=== PATIENT | male | born 1990 | race Caucasian/White ===

== ENCOUNTER 2019-11-12 12:44 | Inpatient (IN) | payer MEDICAID, OTHER ==
--- NOTE | 2019-11-12 12:57 | ED ---
Influenza-Like Illness - HPI Summary HPI Summary: 29 year old M presenting to [facility] via EMS with a chief complaint of shortness of breath and chest pain since earlier today. Patient reports a fever, headache , diffuse body aches, loss of taste, loss of smell, and diarrhea for the last 3 days, worse today. He has been taking Acetaminophen 3-4 times per day and Nyquil for his symptoms. He was tested for COVID-19 yesterday and the results are still pending. He has been isolated at home and has only been out 3 times in the community to go to the supermarket which is where he thinks he may have contracted COVID-19. Medication list reviewed. Allergy list reviewed. - History of Current Complaint Chief Complaint: EDFluSymptoms Hx Obtained From: Patient Onset/Duration: Lasting Days, Still Present - Allergy/Home Medications Allergies/Adverse Reactions: Allergies Allergy/AdvReac Type Severity Reaction Status Date / Time No Known Allergies Allergy Verified 11/12/19 13:13 Home Medications: Home Medications NK [No Home Medications Reported] 11/12/19 [History Confirmed 11/12/19] PMH/Surg Hx/FS Hx/Imm Hx Endocrine/Hematology History: Denies: Hx Diabetes Cardiovascular History: Denies: Hx Hypertension - Surgical History Surgical History: None Infectious Disease History: No Infectious Disease History: Denies: Traveled Outside the [place] in Last 30 Days - Social History Alcohol Use: Occasionally Hx Substance Use: No Substance Use Type: Reports: None Hx Tobacco Use: No Smoking Status (MU): Never Smoked Tobacco Review of Systems Constitutional: Other - Loss of taste, loss of smell Positive: Fever Positive: Chest Pain Positive: Shortness Of Breath Positive: Diarrhea Positive: Myalgia Positive: Headache All Other Systems Reviewed And Are Negative: Yes Physical Exam - Summary Physical Exam Summary: VITAL SIGNS: Reviewed. GENERAL: Patient is a well-developed and nourished male who is lying comfortable in the stretcher. Patient is clammy and diaphoretic. HEAD AND FACE: No signs of trauma. No ecchymosis, hematomas or skull depressions. No sinus tenderness. Oral mucosa dry. EYES: PERRL, EOMI x 2, No injected conjunctiva, no nystagmus. EARS: Hearing grossly intact. Ear canals and tympanic membranes are within normal limits. MOUTH: Oropharynx within normal limits. NECK: Supple, trachea is midline, no adenopathy, no JVD, no carotid bruit, no c- spine tenderness, neck with full ROM. CHEST: Symmetric, no tenderness at palpation. LUNGS: Coarse breath sounds bilaterally. CVS: Slightly tachycardic, S1 and S2 present, no murmurs or gallops appreciated. ABDOMEN: Soft, non-tender. No signs of distention. No rebound, no guarding, and no masses palpated. Bowel sounds are normal. EXTREMITIES: FROM in all major joints, no edema, no cyanosis or clubbing. NEURO: Alert and oriented x 3. No acute neurological deficits. Speech is normal and follows commands. SKIN: Warm. Triage Information Reviewed: Yes Vital Signs On Initial Exam: Initial Vitals Temp Pulse Resp BP Pulse Ox 98.3 F 101 19 155/99 94 11/12/19 12:50 11/12/19 12:50 11/12/19 12:50 11/12/19 12:50 11/12/19 12:50 Vital Signs Reviewed: Yes Procedures - Sedation Patient Received Moderate/Deep Sedation with Procedure: No Diagnostics - Vital Signs Vital Signs Temp Pulse Resp BP Pulse Ox 11/12/19 12:50 98.3 F 101 19 155/99 94 - Laboratory Result Diagrams: 11/12/19 13:06 11/12/19 13:06 Lab Statement: Any lab studies that have been ordered have been reviewed, and results considered in the medical decision making process. - Radiology Chest x-ray Radiology Interpretation Completed By: Radiologist Summary of Radiographic Findings: PATCHY BIBASILAR AIRSPACE DISEASE. ED physician has reviewed this report. - EKG 13:10 Cardiac Rate: NL - 98 BPM EKG Rhythm: Sinus Rhythm Summary of EKG Findings: No STEMI, normal axis. ED physician has reviewed and interpreted this EKG. Flu Symptom Course/Dx - Course Assessment/Plan: 29 year old M presenting to [facility] via EMS with a chief complaint of shortness of breath and chest pain since earlier today. Patient reports a fever, headache, diffuse body aches, loss of taste, loss of smell, and diarrhea for the last 3 days, worse today. He has been taking Acetaminophen 3-4 times per day and Nyquil for his symptoms. He was tested for COVID-19 yesterday and the results are still pending. Medication list reviewed. Allergy list reviewed. In the ED course the patient was placed on a [employer], IV access was obtained, IV fluids started and will be given only 250 cc of IVF since there is a suspicion for COVID-19. He was given Zofran 4 mg IV for nausea and vomiting. HR 101, he is afebrile and BP 155/99. Past medical records reviewed. Blood test w/o a significant abnormality except for wbcs of 20.3, absolute neutrophils of 18.8, absolute lymphocytes of 0.9, INR is 1.42, fibrinogen is 874.7, d-dimer is present 200. Sodium 133, chloride 96, anion gap is 13, glucose 101, total bilirubin is 1.3, CRP is 246, and globulins 4.3. CXR IMPRESSION: PATCHY BIBASILAR AIRSPACE DISEASE. We are still awaiting for the COVID-19 tests results. Patient was given azithromycin and Rocephin for his pneumonia. I also added hydrochloroquine for suspicion of COVID-19. I discussed my physical exam and test results with Dr. Andrew from the hospitalist services and she agrees to admit the patient to her services. The patient is hemodynamically stable alert and oriented x 3. - Diagnoses Provider Diagnoses: Pneumonia - Physician Notifications Discussed Care Of Patient With: Vicki Andrew Time Discussed With Above Provider: 14:27 Instructed by Provider To: Other - Discussed with Dr. Andrew. Critical Care Statement: Critical care time is provided exclusive of any time spent performing procedures. Discharge ED - Sign-Out/Discharge Documenting (check all that apply): Patient Departure - Discharge Plan Condition: Stable Disposition: ADMITTED TO [facility] - Billing Disposition and Condition Condition: STABLE Disposition: Admitted to [facility] - Attestation Statements Document Initiated by Scribe: Yes Documenting Scribe: Lissy Hartmann Provider For Whom Phyllis is Documenting (Include Credential): Efraín Ingram MD Scribe Attestation: I, chantel Stubbsed for Efraín Ingram MD on 11/12/19 at 205. Scribe Documentation Reviewed: Yes Provider Attestation: The documentation as recorded by the Lissy monique accurately reflects the service I personally performed and the decisions made by me, Efraín Ingram MD Status of Scribe Document: Viewed
[2019-11-12] MEDS ORDERED: NS 0.9% 250 ML* 250 ML IV ONE (13:07)
[2019-11-12] MEDS ORDERED: Ondansetron INJ* 2 MG/ML VIAL IV ONE (13:08)
[2019-11-12] MEDS ORDERED: NS 0.9% 1000 ML** 1,000 ML IV.FLUID IV ONE (13:17)
[2019-11-12 13:55] LABS: Albumin 4.1 g/dL (3.2-5.2); BUN/Creatinine Ratio 9.8 (8-20); C Reactive Protein 246.32 mg/L (<8.01); Calcium 9.8 mg/dL (8.6-10.3); EGFR African American 105.2 (>60); Globulin 4.3 g/dL (2-4); Potassium 3.5 mmol/L (3.5-5.0); Total Bilirubin 1.3 mg/dL (0.2-1.0); Total Protein 8.4 g/dL (6.4-8.9)
[2019-11-12 14:07] LABS: ABS Lymphocytes 0.9 10^3/ul (1.0-4.8); ABS Monocytes 0.6 10^3/ul (0-0.8); ABS Neutrophils 18.8 10^3/ul (1.5-7.7); Hematocrit 44 % (42-52); Lymphocyte % 4.2 %; Mean Corpuscular HGB Conc 36 g/dL (31-36); Mean Corpuscular Hemoglobin 31 pg (27-31); Mean Corpuscular Volume 86 fL (80-94); Mean Platelet Volume 7.3 fL (7.4-10.4); Platelet Count 312 10^3/uL (150-450); Red Blood Count 5.14 10^6 /uL (4.18-5.48); Red Cell Distribution Width 12 % (10-15); White Blood Count 20.3 10^3/uL (3.5-10.8)
[2019-11-12 14:11] LABS: Activated Partial Thrombo Time 36.3 seconds (26.0-38.0); Fibrinogen 874.7 mg/dL (110.8-404.3); INR 1.42 (0.82-1.09)
[2019-11-12] MEDS ORDERED: Azithromycin 500 mg/250 ml NS 500 MG/250 ML BAG IVPB ONE (14:20)
[2019-11-12] MEDS ORDERED: cefTRIAXone(*) 1 GM in NS 0.9% 50 ML* 50 ML IVPB ONE (14:22)
[2019-11-12] MEDS ORDERED: Hydrochlorothiazide TAB* 50 MG PO ONE (14:31)
[2019-11-12] MEDS ORDERED: CHLOROQUINE PO ONE (14:51)
[2019-11-12] MEDS ORDERED: Hydroxychloroquine TAB* 200 MG PO ONE (15:00)
[2019-11-12] MEDS ORDERED: Benzonatate CAP* 100 MG PO PRN (15:17)
[2019-11-12] MEDS: Acetaminophen TAB* 325 MG PO PRN (16:28)
--- NOTE | 2019-11-12 17:01 | HP ---
CC: Dr. Teresita English: Dr. Vicki Andrew* ADMISSION HISTORY AND PHYSICAL: DATE OF ADMISSION: 11/12/19 PRIMARY CARE PHYSICIAN: Dr. Teresita English. MY ATTENDING WHILE IN THE HOSPITAL: Dr. Vicki Andrew* (dictated by AGUSTIN Cisneros). CHIEF COMPLAINT: Shortness of breath, muscle aches, subjective fevers x3 days. HISTORY OF PRESENT ILLNESS: Mr. Pate is a 29-year-old male with no significant past medical history who has been feeling his normal state of health, staying generally under social distancing precautions except for 3 trips to the grocery store, who on Sunday night began to feel feverish; short of breath with muscle aches; lack of appetite; subjective fevers, the highest documented fever he has had was up to 101.3; nausea; vomiting; diarrhea of nonbloody stool and vomiting of nonbloody vomit. The patient has not been around anyone who has been sick that he knows of. The patient does live in the same house with his parents, but does not have any direct contact with them. His mother, however, is a primary care provider in the area and has sick contacts frequently. The patient has not had anything to eat or drink in 3 days, but does not feel dizzy on standing. The patient has been urinating normally. The patient has no other pain, no other complaints. In the emergency department, the patient was found to have an elevated white blood cell count and a chest x-ray showing bilateral opacification consistent with COVID-19. He was found to be tachycardic and have oxygen saturations ranging from 91% to 94%. Due to concern for COVID-19 with relative hypoxia for a 29-year-old, we were asked to evaluate the patient for admission to the hospital. PAST MEDICAL HISTORY: None. PAST SURGICAL HISTORY: None. MEDICATIONS: 1. Tylenol as needed. 2. DayQuil as needed. ALLERGIES: No known drug allergies. FAMILY HISTORY: The patient's father has possible high blood pressure. The patient's mother is alive and well with no medical history. The patient has no siblings. SOCIAL HISTORY: The patient has never smoked. The patient drinks alcohol occasionally. Denies illicit drug use. 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 The patient is not and has no children. His surrogate decision maker will be his mother, Wilma Pate. REVIEW OF SYSTEMS: A 10-point review of systems was reviewed and negative except as above in HPI. PHYSICAL EXAMINATION GENERAL: The patient is a 29-year-old male, who appears his stated age and sitting in the bed with mildly increased work of breathing. VITAL SIGNS: Temperature 99.3, pulse rate 101, respiratory rate 19, oxygen saturation 94% on room air, blood pressure 155/99. HEENT: Head is normocephalic, atraumatic. Sclerae anicteric. No conjunctival injection. Nasal mucosa moist. Oral mucosa moist. No pharyngeal erythema, discharge, or exudate. NECK: Supple, nontender. No lymphadenopathy. No carotid bruits auscultated. No JVD. RESPIRATORY: Clear to auscultation bilaterally. No wheezes, rales, or rhonchi. Good air exchange bilaterally. CARDIAC: Tachycardic. No clicks, murmurs, gallops, or rubs. Pulses 2+ in bilateral dorsalis pedis, posterior tibialis, and radial areas. ABDOMEN: Soft, nontender, and nondistended. Bowel sounds present, normoactive in all 4 quadrants. No hepatosplenomegaly. No abdominal bruits auscultated. No hepatojugular reflux. GENITOURINARY: No suprapubic or CVA tenderness. SKIN: Clean, dry, and intact. No rash. NEUROLOGIC: Cranial nerves II through XII intact. No focal deficits. Alert and oriented x3. PSYCHIATRIC: Pleasant and cooperative. LABORATORY DATA: White blood cell count 20.3, hemoglobin 16.0, platelet count 312. INR 1.42. D-dimer less than 200. APTT 36.3. Fibrinogen 874.7. Sodium 133, potassium 3.5, chloride 96, carbon dioxide 24, anion gap 13, BUN 10, creatinine 1.02, glucose 101, lactic acid 0.9, calcium 9.8, bilirubin 1.3, AST 27, ALT 17, alkaline phosphatase 84. Troponin 0.00. CRP 246.32. Protein 8.4, albumin 4.1, globulin 4.3. STUDIES: Chest x-ray read as bilateral patchy bibasilar airspace disease. Electrocardiogram shows sinus tachycardia, no other abnormalities. QTc 415. ASSESSMENT AND PLAN: Impression: Mr. Pate is a 29-year-old male with no significant past medical history, who presents with 3 days of symptoms consistent with a viral illness. The patient tested negative for influenza and he currently has a COVID-19 test pending. The patient has a very high suspicion for COVID-19. He will be admitted to the hospital due to relative hypoxia and concern for rapid deterioration. 1. Viral infection, high concern for COVID-19. The patient has what appears to be a viral infection with fevers, body aches, abdominal pain, nausea, vomiting and shortness of breath. The patient is relatively hypoxic with his oxygen saturation dipping down to approximately 91, which is very low for his age and physical condition. The patient is not requiring oxygen at this time; however, the patient will be admitted to the hospital for observation due to his relative hypoxia. The patient given his leukocytosis as well as leukopenia will be started on azithromycin and ceftriaxone, which he has already received in the emergency department, though concern of bacterial superinfection is low. If the patient does not improve on antibiotics, these likely should be discontinued in the next couple of days. The patient will be started on hydroxychloroquine, he received 400 mg in the emergency department, he will receive 400 more tonight and then 400 daily. The patient does not have poor prognostic risk factors for COVID-19, however, he will be monitored closely. 2. DVT prophylaxis: The patient will be given Lovenox subcu due to the hypercoagulability, particularly seen in COVID-19 patients. 3. Disposition: Observation. TIME SPENT: Approximately 60 minutes was spent on admission of this patient, 30 of which is spent [id number] with the patient obtaining history and physical and discussing treatment plan. The plan was discussed with my attending, Dr. Vicki Andrew and she is in agreement. AGUSTIN CISNEROS [id number]/CPS #: [id number] MTDNishant
[2019-11-12] MEDS: Enoxaparin(*) 40 MG/0.4 ML SYR SUBCUT SCH (17:29)
[2019-11-12] MEDS ORDERED: PROCHLORPERAZINE INJ 5 MG/ML 2 ML VIAL IV PRN (17:39)
[2019-11-12 17:45] LABS: Urine Appearance Clear; Urine Bilirubin Negative (Negative); Urine Blood Negative (Negative); Urine Color Yellow; Urine Glucose Negative (Negative); Urine Ketones 1+ (Negative); Urine Nitrite Negative (Negative); Urine Protein Negative (Negative); Urine Specific Gravity 1.012 (1.010-1.030); Urine Urobilinogen Negative (Negative)
[2019-11-12] MEDS ORDERED: guaiFENesin ER TAB 600 MG PO SCH (21:00)
[2019-11-12] MEDS: Ibuprofen TAB* 600 MG PO PRN (21:07)
[2019-11-13] MEDS: Ibuprofen TAB* 600 MG PO PRN ×2 (03:45→17:28)
[2019-11-13] MEDS: [UNRECOGNIZED DRUG - REMARK] PO SCH (08:05)
[2019-11-13] MEDS: Acetaminophen TAB* 325 MG PO PRN ×2 (08:05→16:23)
[2019-11-13] MEDS: Ondansetron INJ* 2 MG/ML VIAL IV PRN ×2 (08:05→21:13)
[2019-11-13] MEDS ORDERED: Hydroxychloroquine TAB* 200 MG PO SCH (09:00)
--- NOTE | 2019-11-13 12:40 | PN ---
Subjective Date of Service: 11/13/19 Interval History: 29 year old man with diarrhea, cough, dyspnea, fever. This morning appetite improved and keeping down fluids, less dyspnea. Now has cough and vomiting, feeling more short of breath. No chest pain. Objective Active Medications: Acetaminophen (Tylenol Tab*) 650 mg PO Q6H PRN PRN Reason: MILD PAIN or TEMP > 100.4 Last Admin: 11/13/19 08:05 Dose: 650 mg Enoxaparin Sodium (Lovenox(*)) 40 mg SUBCUT Q24H [facility] Last Admin: 11/12/19 17:29 Dose: 40 mg Hydroxychloroquine Sulfate (Plaquenil 200 Mg Tab*) 200 mg PO DAILY [facility] Stop: 11/16/19 09:01 Last Admin: 11/13/19 08:05 Dose: 200 mg Azithromycin 250 mg/ Sodium (Chloride) 250 mls @ 250 mls/hr IVPB Q24H [facility] Ceftriaxone Sodium 1 gm/ (Sodium Chloride) 50 mls @ 200 mls/hr IVPB Q24H [facility] Ibuprofen (Motrin Tab*) 600 mg PO Q6H PRN PRN Reason: PAIN - MILD Last Admin: 11/13/19 03:45 Dose: 600 mg Ondansetron HCl (Zofran Inj*) 4 mg IV Q6H PRN PRN Reason: NAUSEA Last Admin: 11/13/19 08:05 Dose: 4 mg Prochlorperazine Edisylate (Compazine Inj*) 2.5 mg IV Q6H PRN PRN Reason: NAUSEA/VOMITING Last Admin: 11/12/19 18:33 Dose: 2.5 mg Vital Signs - 8 hr 11/13/19 11/13/19 11/13/19 07:15 08:00 11:35 Temperature 36.3 C 36.6 C Pulse Rate 95 105 Respiratory 26 22 Rate Blood Pressure 131/73 147/92 (mmHg) O2 Sat by Pulse 95 95 99 Oximetry Oxygen Devices in Use Now: None, Nasal Cannula Eyes: No Scleral Icterus Ears/Nose/Mouth/Throat: Clear Oropharnyx Neck: NL Appearance and Movements; NL JVP Respiratory: Symmetrical Chest Expansion and Respiratory Effort, Clear to Auscultation Cardiovascular: NL Sounds; No Murmurs; No JVD, RRR Abdominal: NL Sounds; No Tenderness; No Distention Skin: No Rash or Ulcers Neurological: Alert and Oriented x 3 Result Diagrams: 11/12/19 13:06 11/12/19 13:06 Assess/Plan/Problems-Billing Assessment: - Patient Problems (1) Pneumonia Current Visit: No Status: Acute Code(s): J18.9 - PNEUMONIA, UNSPECIFIED ORGANISM SNOMED Code(s): 953746998 Comment: COVID19 negative x1 but think still most likely. Retest, continue hydroxychloroquine. Lekocytosis, continue ceftri/azithro for possibility of bacterial CAP. (2) Diarrhea Current Visit: No Status: Acute Code(s): R19.7 - DIARRHEA, UNSPECIFIED SNOMED Code(s): 96808935 Comment: restart fluids (3) DVT prophylaxis Current Visit: Yes Status: Acute Code(s): Z29.9 - ENCOUNTER FOR PROPHYLACTIC MEASURES, UNSPECIFIED SNOMED Code(s): 346840556 (4) Full code status Current Visit: Yes Status: Acute Code(s): Z78.9 - OTHER SPECIFIED HEALTH STATUS SNOMED Code(s): 557219702
[2019-11-13] MEDS ORDERED: NS 0.9% 1000 ML** 1,000 ML IV SCH (12:45)
[2019-11-13] MEDS: Benzonatate CAP* 100 MG PO PRN (13:13)
[2019-11-13] MEDS ORDERED: NS 0.9% 1000 ML** 1,000 ML IV ONE (14:42)
[2019-11-13] MEDS ORDERED: Albuterol HFA INHALER* 8 gm MDI INH PRN (15:35)
[2019-11-13] MEDS ORDERED: Azithromycin IV(*) 250 MG in NS 0.9% 250 ML* 250 ML IVPB SCH (16:00)
[2019-11-13] MEDS ORDERED: cefTRIAXone(*) 1 GM in NS 0.9% 50 ML* 50 ML IVPB SCH (16:00)
[2019-11-13] MEDS: cefTRIAXone(*) 1 GM in NS 0.9% 50 ML* 50 ML IVPB SCH (16:29)
[2019-11-13] MEDS: LORazepam TAB(*) 0.5 MG PO PRN (17:28)
[2019-11-13] MEDS: Azithromycin IV(*) 250 MG in NS 0.9% 250 ML* 250 ML IVPB SCH (17:29)
[2019-11-13] MEDS: Enoxaparin(*) 40 MG/0.4 ML SYR SUBCUT SCH (17:29)
[2019-11-13 21:44] LABS: BUN/Creatinine Ratio 8.8 (8-20); C Reactive Protein 307.86 mg/L (<8.01); EGFR African American 105.2 (>60); Potassium 3.5 mmol/L (3.5-5.0)
--- NOTE | 2019-11-13 23:35 | PN ---
Progress Note - Progress Note Date of Service: 11/20/19 Note: Pt's D dimer and CRP is elevated. According to [facility] anticoagulation protocol for COVID + pt should be fully anticoagulated with Lovenox 1 mg/kd Q12H. will start tx tonight
[2019-11-13] MEDS ORDERED: Enoxaparin(*) 60 MG/0.6 ML SYR SUBCUT ONE (23:45)
[2019-11-14] MEDS: Ibuprofen TAB* 600 MG PO PRN ×3 (03:41→22:24)
[2019-11-14] MEDS: LORazepam TAB(*) 0.5 MG PO PRN ×3 (03:41→17:07)
[2019-11-14] MEDS ORDERED: NS 0.9% 1000 ML** 1,000 ML IV ONE (03:59)
[2019-11-14 07:20] LABS: Hematocrit 38 % (42-52); Hemoglobin 13.7 g/dL (14.0-18.0); Mean Corpuscular HGB Conc 37 g/dL (31-36); Mean Corpuscular Hemoglobin 32 pg (27-31); Mean Corpuscular Volume 86 fL (80-94); Platelet Count 303 10^3/uL (150-450); Red Blood Count 4.35 10^6 /uL (4.18-5.48); Red Cell Distribution Width 12 % (10-15); White Blood Count 10.8 10^3/uL (3.5-10.8)
[2019-11-14 07:22] LABS: Albumin 3.3 g/dL (3.2-5.2); Albumin/Globulin Ratio 0.9 (1-3); BUN/Creatinine Ratio 8.2 (8-20); Calcium 8.6 mg/dL (8.6-10.3); EGFR African American 110.2 (>60); EGFR Non-African American 91.1 (>60); Globulin 3.7 g/dL (2-4); Potassium 3.6 mmol/L (3.5-5.0); Total Bilirubin 0.7 mg/dL (0.2-1.0)
[2019-11-14] MEDS: Ondansetron INJ* 2 MG/ML VIAL IV PRN ×2 (08:39→20:32)
[2019-11-14] MEDS: [UNRECOGNIZED DRUG - REMARK] PO SCH (08:39)
[2019-11-14] MEDS: Enoxaparin(*) 100 MG/ML SYR SUBCUT SCH (11:49)
[2019-11-14] MEDS: Acetaminophen TAB* 325 MG PO PRN ×3 (11:53→21:20)
[2019-11-14] MEDS: Benzonatate CAP* 100 MG PO PRN ×2 (12:25→22:25)
[2019-11-14] MEDS: cefTRIAXone(*) 1 GM in NS 0.9% 50 ML* 50 ML IVPB SCH (15:19)
--- NOTE | 2019-11-14 15:22 | PN ---
Subjective Date of Service: 11/14/19 Interval History: 29 year old man with fever, diarrhea, cough and dyspnea. Didn't sleep well overnight but slept some today. Decreased appetite, no abd pain, keeping down fluids. Has coughing spells with worsening shortness of breath, improves once coughing stops. No chest pain. Objective Active Medications: Acetaminophen (Tylenol Tab*) 650 mg PO Q6H PRN PRN Reason: MILD PAIN or TEMP > 100.4 Last Admin: 11/14/19 11:53 Dose: 650 mg Albuterol (Ventolin Hfa Inhaler*) 1 puff INH Q4H PRN PRN Reason: SOB/WHEEZING Last Admin: 11/13/19 16:25 Dose: 1 puff Benzonatate (Tessalon Cap*) 100 mg PO BID PRN PRN Reason: COUGH Last Admin: 11/14/19 12:25 Dose: 100 mg Enoxaparin Sodium (Lovenox(*)) 100 mg SUBCUT Q12H [facility] Last Admin: 11/14/19 11:49 Dose: 100 mg Hydroxychloroquine Sulfate (Plaquenil Tab*) 200 mg PO DAILY STEPH Stop: 11/16/19 09:01 Azithromycin 250 mg/ Sodium (Chloride) 250 mls @ 250 mls/hr IVPB Q24H [facility] Last Admin: 11/13/19 17:29 Dose: 250 mls/hr Ceftriaxone Sodium 1 gm/ (Sodium Chloride) 50 mls @ 200 mls/hr IVPB Q24H [facility] Last Admin: 11/13/19 16:29 Dose: 200 mls/hr Ibuprofen (Motrin Tab*) 600 mg PO Q6H PRN PRN Reason: PAIN - MILD Last Admin: 11/14/19 03:41 Dose: 600 mg Lorazepam (Ativan Tab(*)) 0.5 mg PO Q4H PRN PRN Reason: ANXIETY Last Admin: 11/14/19 12:25 Dose: 0.5 mg Ondansetron HCl (Zofran Inj*) 4 mg IV Q6H PRN PRN Reason: NAUSEA Last Admin: 11/14/19 08:39 Dose: 4 mg Vital Signs - 8 hr 11/14/19 11/14/19 11/14/19 09:00 11:53 12:25 Temperature 36.6 C 38.3 C Pulse Rate 100 115 Respiratory 28 32 22 Rate Blood Pressure 149/90 157/93 (mmHg) O2 Sat by Pulse 95 94 Oximetry 11/14/19 15:05 Temperature Pulse Rate Respiratory 36 Rate Blood Pressure (mmHg) O2 Sat by Pulse Oximetry Oxygen Devices in Use Now: Nasal Cannula Appearance: tachypneic, no distress Eyes: No Scleral Icterus, PERRLA Ears/Nose/Mouth/Throat: NL Teeth, Lips, Gums Neck: NL Appearance and Movements; NL JVP Respiratory: Symmetrical Chest Expansion and Respiratory Effort, Clear to Auscultation Cardiovascular: NL Sounds; No Murmurs; No JVD Abdominal: NL Sounds; No Tenderness; No Distention Extremities: No Edema Neurological: Alert and Oriented x 3 Result Diagrams: 11/14/19 06:37 11/14/19 06:37 Microbiology and Other Data: Microbiology 11/12/19 13:06 Aerobic Blood Culture - Preliminary Blood Venous No Growth Day 2 Anaerobic Blood Culture - Preliminary No Growth Day 2 11/13/19 16:35 Gram Stain - Final Sputum Expectorated 11/12/19 17:52 Aerobic Blood Culture - Preliminary Blood Venous No Growth Day 1 Anaerobic Blood Culture - Preliminary No Growth Day 1 Assess/Plan/Problems-Billing Assessment: - Patient Problems (1) Pneumonia Current Visit: No Status: Acute Code(s): J18.9 - PNEUMONIA, UNSPECIFIED ORGANISM SNOMED Code(s): 595431292 Comment: COVID19 negative x1 but most likely, retest pending. Continue hydroxychloroquine. Lekocytosis, improved, probably hemoconcentrated, continue ceftri/azithro until 11/14 for possibility of bacterial CAP. (2) Diarrhea Current Visit: No Status: Acute Code(s): R19.7 - DIARRHEA, UNSPECIFIED SNOMED Code(s): 86470740 (3) DVT prophylaxis Current Visit: Yes Status: Acute Code(s): Z29.9 - ENCOUNTER FOR PROPHYLACTIC MEASURES, UNSPECIFIED SNOMED Code(s): 376838980 Comment: therapeutic dose lovenox in setting of covid hypercoag risk (4) Full code status Current Visit: Yes Status: Acute Code(s): Z78.9 - OTHER SPECIFIED HEALTH STATUS SNOMED Code(s): 279831750
--- NOTE | 2019-11-14 17:10 | PN ---
Hospitalist Progress Note Date of Service: 11/14/[address] Nicholas, Patient continue to be tachypenic with a respiratory rate 40-50, case discussed with ICU attending Dr. Mendoza. Patient is OK to stay on the floor at this time. Updated the ICU again as patient continues to have respiratory rate of 40-55, o2 sats 92%, advised to get an ABG and place the patient in the prone position. ABG ordered and pending Will continue to monitor respiratory status closely, may require transfer to the ICU for high flow and closer monitoring. 1830- updated from nursing staff, patient respiration are improved now resp. rate 30. appears more comfortable. Signed out to night attending.
[2019-11-14] MEDS: Azithromycin IV(*) 250 MG in NS 0.9% 250 ML* 250 ML IVPB SCH (17:12)
[2019-11-14] MEDS: Potassium Chloride IV* 20 MEQ in Lactated Ringers 1000 ML Bag* 1,000 ML IVPB SCH (18:45)
[2019-11-15] MEDS: Metoclopramide IV* 5 MG/ML 2 ML VIAL IV PRN ×2 (00:18→17:40)
[2019-11-15] MEDS: Enoxaparin(*) 100 MG/ML SYR SUBCUT SCH ×2 (00:18→11:27)
[2019-11-15 06:52] LABS: ABS Eosinophils 0.2 10^3/ul (0-0.6); ABS Lymphocytes 0.6 10^3/ul (1.0-4.8); ABS Monocytes 0.3 10^3/ul (0-0.8); ABS Neutrophils 7.5 10^3/ul (1.5-7.7); Eosinophil % 1.9 %; Hematocrit 37 % (42-52); Hemoglobin 13.3 g/dL (14.0-18.0); Lymphocyte % 6.7 %; Mean Corpuscular HGB Conc 36 g/dL (31-36); Mean Corpuscular Hemoglobin 31 pg (27-31); Mean Corpuscular Volume 87 fL (80-94); Mean Platelet Volume 6.8 fL (7.4-10.4); Nucleated Red Blood Cells % 0.3; Platelet Count 360 10^3/uL (150-450); Red Blood Count 4.29 10^6 /uL (4.18-5.48); Red Cell Distribution Width 12 % (10-15); White Blood Count 8.6 10^3/uL (3.5-10.8)
[2019-11-15 06:59] LABS: INR 1.5 (0.82-1.09)
[2019-11-15 07:12] LABS: BUN/Creatinine Ratio 8.6 (8-20); Calcium 8.7 mg/dL (8.6-10.3); EGFR African American 117.1 (>60); EGFR Non-African American 96.7 (>60); Potassium 3.6 mmol/L (3.5-5.0)
[2019-11-15] MEDS: Ondansetron INJ* 2 MG/ML VIAL IV PRN ×3 (07:52→21:14)
[2019-11-15] MEDS: Potassium Chloride IV* 20 MEQ in Lactated Ringers 1000 ML Bag* 1,000 ML IVPB SCH (07:54)
[2019-11-15] MEDS: Acetaminophen TAB* 325 MG PO PRN (08:01)
[2019-11-15] MEDS: Hydroxychloroquine TAB* 200 MG PO SCH (08:02)
[2019-11-15] MEDS: Benzonatate CAP* 100 MG PO PRN ×2 (08:02→21:14)
--- NOTE | 2019-11-15 08:57 | PN ---
Subjective Date of Service: 11/15/19 Interval History: patient is A+Ox3 laying in bed, appears mildly dyspenic - is able to talk in full sentences. Reports he feels ok right now but comes in waves of feeling SOB. reports nonproductive cough. Denies fever, reports occasional chills, no rigors. Continues to have diarrhea - 3 loose BMs yesterday. No blood noted in stool. No abdominal pain, n/v. reports [place] not relieved by APAP Objective Active Medications: Acetaminophen (Tylenol Tab*) 650 mg PO Q4H PRN PRN Reason: MILD PAIN or TEMP > 100.4 Last Admin: 11/15/19 08:01 Dose: 650 mg Albuterol (Ventolin Hfa Inhaler*) 1 puff INH Q4H PRN PRN Reason: SOB/WHEEZING Last Admin: 11/13/19 16:25 Dose: 1 puff Benzonatate (Tessalon Cap*) 100 mg PO BID PRN PRN Reason: COUGH Last Admin: 11/15/19 08:02 Dose: 100 mg Enoxaparin Sodium (Lovenox(*)) 100 mg SUBCUT Q12H [facility] Last Admin: 11/15/19 00:18 Dose: 100 mg Hydroxychloroquine Sulfate (Plaquenil Tab*) 200 mg PO DAILY [facility] Stop: 11/16/19 09:01 Last Admin: 11/15/19 08:02 Dose: 200 mg Azithromycin 250 mg/ Sodium (Chloride) 250 mls @ 250 mls/hr IVPB Q24H [facility] Stop: 11/15/19 23:59 Last Admin: 11/14/19 17:12 Dose: 250 mls/hr Ceftriaxone Sodium 1 gm/ (Sodium Chloride) 50 mls @ 200 mls/hr IVPB Q24H [facility] Stop: 11/15/19 23:59 Last Admin: 11/14/19 15:19 Dose: 200 mls/hr Ibuprofen (Motrin Tab*) 600 mg PO Q6H PRN PRN Reason: PAIN - MILD Last Admin: 11/14/19 22:24 Dose: 600 mg Lorazepam (Ativan Tab(*)) 0.5 mg PO Q4H PRN PRN Reason: ANXIETY Last Admin: 11/14/19 17:07 Dose: 0.5 mg Metoclopramide HCl (Reglan Iv*) 5 mg IV Q6H PRN PRN Reason: NAUSEA/VOMITING Last Admin: 11/15/19 00:18 Dose: 5 mg Ondansetron HCl (Zofran Inj*) 4 mg IV Q6H PRN PRN Reason: NAUSEA Last Admin: 11/15/19 07:52 Dose: 4 mg Vital Signs - 8 hr 11/15/19 11/15/19 04:57 07:15 Temperature 98.9 F 99.8 F Pulse Rate 114 126 Respiratory 16 40 Rate Blood Pressure 155/96 167/90 (mmHg) O2 Sat by Pulse 95 93 Oximetry Oxygen Devices in Use Now: Nasal Cannula - 4L NC Appearance: A+Ox3 - appears mildly dyspenic, anxious Eyes: No Scleral Icterus, PERRLA Ears/Nose/Mouth/Throat: Mucous Membranes Moist Neck: NL Appearance and Movements; NL JVP, Trachea Midline Respiratory: - - appears mildly dyspenic, is able to talk in full sentances. Bilateral lobes are diminished with crackles. Upper airway noted good aeration. harsh cough noted. Cardiovascular: NL Sounds; No Murmurs; No JVD, RRR, No Edema Abdominal: NL Sounds; No Tenderness; No Distention, No Hepatosplenomegaly Extremities: No Edema, No Clubbing, Cyanosis Skin: No Rash or Ulcers, No Nodules or Sclerosis Neurological: Alert and Oriented x 3, NL Sensation, NL Muscle Strength and Tone Lines/Tubes/Other Access: Clean, Dry and Intact Peripheral IV Nutrition: Taking PO's Result Diagrams: 11/15/19 06:14 11/15/19 06:14 Microbiology and Other Data: Microbiology 11/12/19 13:06 Aerobic Blood Culture - Preliminary Blood Venous No Growth Day 2 Anaerobic Blood Culture - Preliminary No Growth Day 2 11/13/19 16:35 Gram Stain - Final Sputum Expectorated 11/12/19 17:52 Aerobic Blood Culture - Preliminary Blood Venous No Growth Day 1 Anaerobic Blood Culture - Preliminary No Growth Day 1 Assess/Plan/Problems-Billing Assessment: 29 yo male with no significant PMH who presented on 11/11 with diarrhea, dyspnea, fever admitted with concern for COVID-19 - Patient Problems (1) Pneumonia Comment: COVID19 negative x2 Plan to retest COVID today per ID plus respiratory panel, HIV Repeat Chest xray this morning appears to have worsening patchy bilateral airspace repeat ABG - PO2 71 last night - > repeat now On 4L NC with O2 sat 93- 96% Continue hydroxychloroquine. Continue ceftri/azithro until 11/14 for possibility of bacterial CAP. Lekocytosis, resolved. Afebrile so far today - temp of 101 yesterday afternoon CRP trending down Blood cx negative Sputum pending Add on MV w/ minerals, Vitamin C, -> check vitamin D level Add Strict I+Os (2) Diarrhea Comment: - improving slightly -> 2-3 loose stools yesterday-> no abdominal pain. N/V - He is drinking PO fluids - continue to encourage (3) Full code status (4) DVT prophylaxis Comment: therapeutic dose lovenox in setting of covid hypercoag risk Status and Disposition: inpatient with fever, Pneumonia, high suspicion for COVID-19. ID following
[2019-11-15 10:42] LABS: C Reactive Protein 258.65 mg/L (<8.01)
[2019-11-15] MEDS ORDERED: traMADol TAB* 50 MG PO PRN (10:42)
[2019-11-15] MEDS ORDERED: Furosemide IV* 10 MG/ML VIAL (40 MG) IV ONE (11:14)
[2019-11-15 11:20] LABS: Vitamin D Total 25(OH) 15.5 ng/mL (20-50)
[2019-11-15] MEDS: LORazepam TAB(*) 0.5 MG PO PRN (11:24)
[2019-11-15] MEDS ORDERED: Acetaminophen TAB* 325 MG PO PRN (13:25)
[2019-11-15 13:30] LABS: HIV 4th Generation Nonreactive (Nonreactive)
[2019-11-15] MEDS ORDERED: NS 0.9% IVPB ONE (14:00)
[2019-11-15] MEDS ORDERED: TOCILIZUMAB IVPB ONE (14:00)
[2019-11-15 15:16] LABS: TSH (Thyroid Stimulating Horm) 0.6 mcIU/mL (0.34-5.60)
[2019-11-15 15:18] LABS: Free T4 1.16 ng/dL (0.61-1.12)
--- NOTE | 2019-11-15 16:17 | PN ---
Progress Note - Progress Note Date of Service: 11/15/19 Note: Patient transferred from 4N to ICU for increased WOB. Patient is COVID rule out with increasing oxygen needs over the last 24 hours. He has gone from 2LNC to 6LNC with RR 30-50BPM and tachycardia. Also having multiple bouts of diarrhea. Suggested self proning last night and repeat CXR and ABG today. Hospitalist team concerned that patient may have increasing respiratory failure, as chest xray shows increased bilateral airspace opacities and pleural effusions today. Agree that patient would likely benefit from ICU monitoring as he is high risk for acute decompensation Diagnoss: 1. Respiratory failure, r/o COVID19 - Start HFHNC to reduce work of breathing - ABG now - Dr. Nicholas of ID already following closely - Continue plaquenil protocol and ceftriaxone - ID recommends Actemra as well, give 400mg IVPB x1 dose now, monitor LFTs First COVID test was negative, however, given constellation of symptoms and findings, patient will be treated as COVID19 positive. Patient has been transferred to ICU14, negative pressure room for further care.
[2019-11-15] MEDS: cefTRIAXone(*) 1 GM in NS 0.9% 50 ML* 50 ML IVPB SCH (16:30)
[2019-11-15] MEDS: Azithromycin IV(*) 250 MG in NS 0.9% 250 ML* 250 ML IVPB SCH (17:06)
[2019-11-15] MEDS: Ascorbic Acid TAB* 500 MG PO SCH (21:13)
[2019-11-15] MEDS: Enoxaparin(*) 60 MG/0.6 ML SYR SUBCUT SCH (21:14)
[2019-11-15] MEDS ORDERED: Melatonin 3 MG TAB PO PRN (22:47)
[2019-11-15] MEDS ORDERED: guaiFENesin ER TAB 600 MG PO PRN (23:19)
[2019-11-16 05:18] LABS: ABS Eosinophils 0.4 10^3/ul (0-0.6); ABS Lymphocytes 0.9 10^3/ul (1.0-4.8); ABS Monocytes 0.3 10^3/ul (0-0.8); ABS Neutrophils 5.6 10^3/ul (1.5-7.7); Hematocrit 37 % (42-52); Hemoglobin 13.4 g/dL (14.0-18.0); Lymphocyte % 12.1 %; Mean Corpuscular HGB Conc 36 g/dL (31-36); Mean Corpuscular Hemoglobin 31 pg (27-31); Mean Corpuscular Volume 86 fL (80-94); Mean Platelet Volume 6.7 fL (7.4-10.4); Nucleated Red Blood Cells % 0.1; Platelet Count 397 10^3/uL (150-450); Red Blood Count 4.34 10^6 /uL (4.18-5.48); Red Cell Distribution Width 12 % (10-15); White Blood Count 7.3 10^3/uL (3.5-10.8)
[2019-11-16 05:36] LABS: BUN/Creatinine Ratio 16.5 (8-20); C Reactive Protein 243.34 mg/L (<8.01); Calcium 8.2 mg/dL (8.6-10.3); EGFR African American 129.9 (>60); EGFR Non-African American 107.3 (>60); Magnesium 2.3 mg/dL (1.9-2.7); Potassium 3.4 mmol/L (3.5-5.0)
[2019-11-16] MEDS: Ascorbic Acid TAB* 500 MG PO SCH ×2 (09:08→21:01)
[2019-11-16] MEDS: Hydroxychloroquine TAB* 200 MG PO SCH (09:08)
[2019-11-16] MEDS: Enoxaparin(*) 60 MG/0.6 ML SYR SUBCUT SCH ×2 (09:08→21:01)
[2019-11-16] MEDS: Multivitamins/Minerals TAB PO SCH (09:08)
[2019-11-16] MEDS ORDERED: Potassium Chlor TAB* 20 MEQ TAB.ER PO ONE (10:41)
[2019-11-16] MEDS: Cholecalciferol TAB* 1000 UNITS PO SCH (11:33)
--- NOTE | 2019-11-16 13:39 | PN ---
Date of Service: 11/16/19 Critical Care Services: Patient seen and examined. Overnight events noted, patient had some coughing at midnight and started to desat which improved with self proning and repositioning. No further events after. This morning, he states he feels better. We discussed his chest xray findings and plan of care, that his course may be prolonged depending on O2 sats and ability to wean off vapo and would be a day by day process. Patient agreeable to plan. Vital Signs: Temp Pulse Resp BP SpO2 FiO2 97.7 F 78 16 161/96 98 50 11/16/19 11:32 11/16/19 12:00 11/16/19 12:00 11/16/19 12:00 11/16/19 12:00 11/15 11:30 Physical Exam: Neck: soft, supple, no JVD CV: Regular rate and rhythm, no murmurs or rubs Pulm/Chest: Good bilateral air entry, diminished bilaterally Abdomen/GI: soft, nontender, nondistended, +BS noted MSK/Skin: warm, dry, intact, +2 pulses+, no edema or cyanosis Neuro: A&Ox3, no gross focal deficits Psych: Anxious Fluid Balance (Past 24 Hours): I= O= Net Intake & Output 11/14/19 11/15/19 11/16/19 11/17/19 06:59 06:59 06:59 06:59 Intake Total 2640 2950 1833 120 Output Total 350 1975 Balance 2640 2600 -142 120 Weight 200 lb 2.876 oz Intake: IV Fluids 50 1318 ABX - AZITHROMYCIN 118 LR with 20 K 1200 IVPB 300 265 ABX - AZITHROMYCIN 265 LR with 20 K 300 Oral 2640 2600 250 120 Output: Urine 350 1000 [place] 975 Other: Estimated Void Medium Date of Last Bowel 11/14/19 Movement # Bowel Movements 2 1 Estimated Stool Amount Medium Medium Small # Voids 3 2 Labs: Laboratory Results - last 24 hr 11/15/19 11/15/19 11/16/19 06:14 12:10 05:02 WBC 7.3 RBC 4.34 Hgb 13.4 L Hct 37 L MCV 86 MCH 31 MCHC 36 RDW 12 Plt Count 397 MPV 6.7 L Neut % (Auto) 77.1 Lymph % (Auto) 12.1 [place] % (Auto) 4.3 Eos % (Auto) 6.0 Baso % (Auto) 0.5 Absolute Neuts (auto) 5.6 Absolute Lymphs (auto) 0.9 L Absolute Monos (auto) 0.3 Absolute Eos (auto) 0.4 Absolute Basos (auto) 0.0 Absolute Nucleated RBC 0.0 Nucleated RBC % 0.1 Sodium 134 L Potassium 3.6 Chloride 101 Carbon Dioxide 22 Anion Gap 11 BUN 8 Creatinine 0.93 Est GFR ( Amer) 117.1 Est GFR (Non-Af Amer) 96.7 BUN/Creatinine Ratio 8.6 Glucose 91 Calcium 8.7 Magnesium C-Reactive Protein 258.65 H 25-OH Vitamin D Total 15.5 L TSH 0.60 Free T4 1.16 H HIV 1&2 Ab/P24 Ag 4thGn Nonreactive 11/16/19 05:02 WBC RBC Hgb Hct MCV MCH MCHC RDW Plt Count MPV Neut % (Auto) Lymph % (Auto) [place] % (Auto) Eos % (Auto) Baso % (Auto) Absolute Neuts (auto) Absolute Lymphs (auto) Absolute Monos (auto) Absolute Eos (auto) Absolute Basos (auto) Absolute Nucleated RBC Nucleated RBC % Sodium 134 L Potassium 3.4 L Chloride 99 L Carbon Dioxide 24 Anion Gap 11 BUN 14 Creatinine 0.85 Est GFR ( Amer) 129.9 Est GFR (Non-Af Amer) 107.3 BUN/Creatinine Ratio 16.5 Glucose 90 Calcium 8.2 L Magnesium 2.3 C-Reactive Protein 243.34 H 25-OH Vitamin D Total TSH Free T4 HIV 1&2 Ab/P24 Ag 4thGn Studies: CXR 11/16/2019 FINDINGS: Overlying leads obscure the [id number]. Extensive patchy bilateral airspace opacification is similar from November 15, 2019. There is no pleural effusion. The cardiac silhouette is unchanged. The osseous structures are unremarkable. The upper abdominal contents are unremarkable. IMPRESSION: Similar patchy bilateral airspace opacification . Nutrition: Regular diet Impression: This is a 29 year old male Patient transferred from to ICU for increased WOB. Patient is COVID rule out with increasing oxygen needs over the last 24 hours. Diagnoses: 1. Respiratory failure, r/o COVID19 2. Diarrhea Plan: Neuro - Manage anxiety with PRN ativan and relaxation when possible Pulm - Titrate HFHNC to reduce work of breathing - Follow ABGs - CXR as above, patchy opacities similar to yesterday ID - 2 negative COVID tests, however, clinically patient presents as a covid patient with hypoxia, tachypnea, dry cough, fever and diarrhea - Dr. Nicholas of ID following closely - Continue plaquenil protocol, ceftriaxone completed - Actemra 400mg IVPB given 11/14/2019 - CRP 243.34, tranding down, afebrile today GI- - Nutrition: Regular diet - Zofranand reglan PRN Renal- - strict I/O, replete to keep K>4, Mg>2 Heme- - Leucocytosis resolved - Lovenox 50mg Q12h for DVT prophy Code Status: Full Code Disposition: Patient requires critical care for respiratory failure and high flow oxygen therapy. Time spent: 30 minutes
[2019-11-16] MEDS: LORazepam TAB(*) 0.5 MG PO PRN ×2 (18:29→22:40)
[2019-11-17 05:20] LABS: Calcium 8.8 mg/dL (8.6-10.3); Potassium 3.8 mmol/L (3.5-5.0)
[2019-11-17 05:25] LABS: BUN/Creatinine Ratio 19.5 (8-20); EGFR African American 135.4 (>60); EGFR Non-African American 111.9 (>60)
[2019-11-17] MEDS: Cholecalciferol TAB* 1000 UNITS PO SCH (09:51)
[2019-11-17] MEDS: Ascorbic Acid TAB* 500 MG PO SCH ×2 (09:51→21:40)
[2019-11-17] MEDS: Multivitamins/Minerals TAB PO SCH (09:51)
[2019-11-17] MEDS: Enoxaparin(*) 60 MG/0.6 ML SYR SUBCUT SCH ×2 (09:52→21:40)
--- NOTE | 2019-11-17 14:07 | PN ---
Date of Service: 11/17/19 Critical Care Services: Was able to be weaned off vapotherm this morning. He states he is feeling better , able to speak full sentences without issue. Vital Signs: Temp Pulse Resp BP SpO2 FiO2 96.9 F 82 20 151/89 96 50 11/17/19 13:48 11/17/19 13:48 11/17/19 13:48 11/17/19 13:48 11/17/19 13:48 11/16 04:00 Physical Exam: Gen: Awake, alert, laying in bed, NAD HEENT: Atraumtatic, normocephalic, anicteric sclera, neck supple Lungs: Clear to auscultation throughout. No wheezes or rhonchii Cardiac: normal rate, s1s2, no obvious murmurs Abdomen:soft, nontender, nondistended Extremities: warm, dry, no edema Neuro: awake, alert, oriented x 3. PERRL 4mm, EOMI. Strength 5/5 all extremities , no gross focal deficits. Fluid Balance (Past 24 Hours): I= O= Net Intake & Output 11/15/19 11/16/19 11/17/19 11/18/19 06:59 06:59 06:59 06:59 Intake Total 2950 1833 924 Output Total 350 1975 Balance 2600 -142 924 Weight 200 lb 2.876 oz 198 lb 13.711 oz Intake: IV Fluids 50 1318 164 ABX - AZITHROMYCIN 118 LR with 20 K 1200 NS 164 IVPB 300 265 ABX - AZITHROMYCIN 265 LR with 20 K 300 Oral 2600 250 760 Output: Urine 350 1000 [place] 975 Other: Estimated Void Medium Medium Date of Last Bowel 11/14/19 Movement # Bowel Movements 2 1 1 Estimated Stool Amount Medium Small Medium # Voids 2 1 Labs: Laboratory Results - last 24 hr 11/17/19 04:34 Sodium 136 Potassium 3.8 Chloride 102 Carbon Dioxide 23 Anion Gap 11 BUN 16 Creatinine 0.82 Est GFR ( Amer) 135.4 Est GFR (Non-Af Amer) 111.9 BUN/Creatinine Ratio 19.5 Glucose 90 Calcium 8.8 Studies: 11/15 CXR: similar extensive patchy airspace opacification 11/14 CXR: Markedly increased patchy bilateral airspace opacification concerning for pneumonia Nutrition: Regular diet Impression: 29M with only PMH of anxiety, presents initially on 4/15/20 with 3 days of SOB, muscle aches, fevers. He was transferred from to ICU on 11/14 for increased WOB and increasing O2 requirements. 1. Acute hypoxic respiratory failure, r/o COVID Plan: NEURO: - PRN ativan for anxiety. no current issues CVS: - Some elevated BP readings but seem to be associated with anxiety or excessive activity. BP at rest WNL - HR WNL PULMONARY: - Acute hypoxic respiratory failure. Weaned off of vapotherm this AM and is currently on 3L NC. - He states that his work of breathing has improved and he is able to speak full sentences today. - CXR appears stable - COVID testing pending. Will continue to treat as such d/t symptoms and O2 requirements RENAL: - No active issues - Replace electrolytes to keep K>4 and Mag>2 ENDOCRINE: - No active issues GI: - Has a poor appetite but is able to tolerate some food. - Continue regular diet HEME: - Lovenox for DVT prophylaxis ID: - Afebrile, WBC WNL
[2019-11-17] MEDS: LORazepam TAB(*) 0.5 MG PO PRN (21:40)
[2019-11-17] MEDS: Metoclopramide IV* 5 MG/ML 2 ML VIAL IV PRN (21:41)
[2019-11-18] MEDS: Ascorbic Acid TAB* 500 MG PO SCH (07:36)
[2019-11-18] MEDS: Multivitamins/Minerals TAB PO SCH (07:36)
[2019-11-18] MEDS: Enoxaparin(*) 60 MG/0.6 ML SYR SUBCUT SCH (07:37)
[2019-11-18] MEDS: Cholecalciferol TAB* 1000 UNITS PO SCH (07:38)
[2019-11-18 15:22] VITALS: BP 148/90
--- NOTE | 2019-11-19 10:45 | DS ---
CC: Dr. Teresita English* DISCHARGE SUMMARY: DATE OF ADMISSION: 11/12/19 DATE OF DISCHARGE: 11/18/19 PRIMARY CARE PHYSICIAN: Dr. Teresita English. CONDITION AT DISCHARGE: Ambulatory without assistance. DISPOSITION: Home. PRIMARY DISCHARGE DIAGNOSIS: Viral pneumonia, likely COVID-19 with respiratory failure. SECONDARY DIAGNOSIS: Diarrhea. PROCEDURES: None. PERTINENT IMAGING: Chest x-ray showed patchy bilateral airspace opacification. PERTINENT LABORATORY RESULTS: COVID-19 PCR was negative, a repeat is pending. CRP peak at 307. HIV antibody negative. HISTORY OF PRESENT ILLNESS: A 29-year-old man admitted with cough, fever, diarrhea, patchy infiltrates on chest x-ray, supplemental oxygen therapy was given along with Plaquenil. He had progression of tachypnea, hypoxia, and required elevating levels with oxygen support. He had a dose of Actemra. He was in the ICU for 2 nights on high flow oxygen and was able to be tapered down over 11/15/19 to 11/16/19 and starting the evening of 11/16/19 has been on room air saturating in the high 90s, today in the 97+ on room air throughout the day with activity. DISCHARGE MEDICATIONS: None. DISCHARGE INSTRUCTIONS: Resume normal diet and activity as tolerated. PENDING STUDIES: A third COVID-19 PCR and respiratory viral panel PCR. FOLLOWUP: Follow up with Dr. English in 1 to 2 weeks. PROGNOSIS: Good. Return to the hospital if shortness of breath, cough, fever, or chest pain. [id number]/[facility] #: [id number] [facility]
== END 2019-11-18 16:45 | disposition home or self-care (01) | DRG 139 ==
LOC: ED 12:44 → MED 15:17 → ED 16:42 → MED 11-14 12:35 → OBSVTOIN 11-14 15:50 → ICU 11-15 13:50 → MED 11-17 14:17
PROVIDERS: ADMIT Internal Medicine; ATTEND Internal Medicine
DX: J12.9 Viral pneumonia, unspecified (principal); J96.00 Acute respiratory failure, unspecified whether with hypoxia or hypercapnia; R50.9 Fever, unspecified; R19.7 Diarrhea, unspecified; F41.9 Anxiety disorder, unspecified; Z82.49 Family history of ischemic heart disease and other diseases of the circulatory system
CPT/HCPCS: 36415; 36600; 71045; 80048; 80053; 81003; 82306; 82803; 83605; 83735; 84145; 84439; 84443; 84484; 85025; 85027; 85379; 85384; 85610; 85730; 86140; 87040; 87070; 87205; 87389; 87635; 93005; 96374; 96375; 99285; A9270-GY; G0378; J0456; J0696; J0780; J1650; J1940; J2405; J2765; J3262; J3480